=== PATIENT | female | born 1975 | race Caucasian/White ===

== ENCOUNTER → 2017-03-04 | Outpatient (CLI) | payer BC ==
--- NOTE | 2017-03-04 14:32 | Diagnostic Imaging Report ---
PROCEDURE: US Thyroid. TECHNIQUE: Multiple real-time grayscale images were obtained of the thyroid in various projections. INDICATION: Dysphagia. COMPARISON: None. DISCUSSION: The thyroid gland is normal in echotexture and size. No discrete nodules identified. No abnormal adjacent lymph nodes identified. Normal color Doppler blood flow. The right thyroid measures 4.4 x 0.9 x 1.0 cm. Left thyroid measures 3.8 x 1.0 x 1.1 cm. IMPRESSION: 1. Normal sonographic appearance of the thyroid gland. Dictated by: Dictated on workstation # [id number]
== END ==
LOC: RAD 12:46
PROVIDERS: ATTEND Nurse Practitioner Family
DX: R13.10 Dysphagia, unspecified (principal)
CPT/HCPCS: 76536

== ENCOUNTER → 2018-11-03 | Outpatient (CLI) | payer BC ==
--- NOTE | 2018-11-03 21:12 | Diagnostic Imaging Report ---
INDICATION: Routine screening. COMPARISON: Prior mammogram from 11/05/2015 and 10/31/2013. EXAMINATION: 2D and 3D bilateral screening mammography was performed with CAD. The current study was also evaluated with a Computer Aided Detection (CAD) system. FINDINGS: Both breasts remain heterogeneously dense, limiting the sensitivity of mammography. Intraparenchymal lymph nodes in both breasts appear to be stable. No dominant mass or malignant appearing microcalcifications are seen. The axillae are unremarkable. IMPRESSION: No mammographic features suspicious for malignancy are identified. ACR BI-RADS Category 2: Benign findings. Result letter will be mailed to the patient. Note: At least 10% of breast cancer is not imaged by mammography. Dictated by: Dictated on workstation # [id number]
== END ==
LOC: RAD 10:18
PROVIDERS: ATTEND Nurse Practitioner Family
DX: Z12.31 Encounter for screening mammogram for malignant neoplasm of breast (principal)
CPT/HCPCS: 77067

== ENCOUNTER → 2020-12-31 | Outpatient (CLI) | payer BC ==
--- NOTE | 2020-12-31 20:02 | Diagnostic Imaging Report ---
INDICATION: Routine screening. COMPARISON is made with prior mammograms 11/03/2018 and 11/05/2015. 2-D and 3-D bilateral screening mammography was performed with CAD. Both breasts are heterogeneously dense, limiting the sensitivity of mammography. Intraparenchymal lymph nodes in the outer aspects of both breasts appears stable. No spiculated mass or malignant appearing microcalcifications are seen. Axillae are unremarkable. IMPRESSION: BI-RADS Category 2. No mammographic features suspicious for malignancy are identified. ACR BI-RADS Category 2: Benign findings. Result letter will be mailed to the patient. Note: At least 10% of breast cancer is not imaged by mammography. Dictated by: Dictated on workstation # [id number]
== END ==
LOC: RAD 15:00
PROVIDERS: ATTEND Family Medicine
DX: Z12.31 Encounter for screening mammogram for malignant neoplasm of breast (principal)
CPT/HCPCS: 77063; 77067

== ENCOUNTER 2021-04-11 13:30 | Outpatient (RCR) | payer BC | END 2021-07-10 | disposition home or self-care (01) | LOC: CARD 13:30 | PROVIDERS: ATTEND Nurse Practitioner Family | DX: R00.0 Tachycardia, unspecified (principal) ==

== ENCOUNTER 2022-02-26 23:13 | Emergency (ER) | payer BC ==
[~2022-02-26] VITALS: Ht 165 cm; Wt 89.0 kg
[2022-02-26] MEDS ORDERED: MTP25TSR (23:29)
[2022-02-26] MEDS ORDERED: CIPR2.5D3 (23:29)
[2022-02-26] MEDS ORDERED: LEVO-129 (23:29)
--- NOTE | 2022-02-27 00:01 | ED General ---
General Chief Complaint: Cardiac/General Problems Stated Complaint: HIGH BLOOD PRESSURE Nursing Triage Note: c/o "head parisi" feeling tonight. reports taking extra dose metoprolol. denies other complaints. Source of Information: Patient History of Present Illness Date Seen by Provider: Feb 26, 2022 Time Seen by Provider: 23:34 Initial Comments PT ARRIVES VIA POV FROM HOME STATES AROUND 2130 TONIGHT, SHE HAD A BRIEF "HEAD PARISI" --THOUGHT HER BLOOD PRESSURE MIGHT BE HIGH, SO SHE TOOK AN EXTRA DOSE OF BLOOD PRESSURE MEDICATION--SHE DID NOT CHECK HER BLOOD PRESSURE OR PULSE TONIGHT STATES SHE FEELS FINE NOW STATES FOR THE LAST COUPLE OF WEEKS, SHE HAS BEEN HAVING "HEAD RUSHES" ( VERY BRIEF EPISODES THAT LAST A COUPLE OF SECONDS) OFF AND ON FOR THE LAST COUPLE OF WEEKS--THOUGHT IT MIGHT BE RELATED TO HER BLOOD PRESSURE BEING HIGH, BUT SHE HAS NOT CHECKED HER BLOOD PRESSURE OR PULSE AT ANY TIME. HAS NOT ATTEMPTED TO CONTACT HER PCP AT ANY TIME. PT HAS BEEN PRESCRIBED METOPROLOL 25 MG ER TABLET--1/2 PILL DAILY. PT SELF-INCREASED THIS DOSE TO A FULL PILL ABOUT 2 WEEKS AGO, WHEN SHE STARTED HAVING THESE "HEAD RUSHES" SHE TOOK A FULL PILL AT 1800 TONIGHT, AND THEN TOOK ANOTHER FULL PILL AT 2130 TONIGHT WHEN SHE HAD THE "HEAD PARISI" NO HEADACHE AT ANY TIME NO DIZZINESS NO VISION CHANGES NO SYNCOPE NO NAUSEA/VOMITING NO PARESTHESIAS OR MOTOR DEFICITS NO CHEST PAIN NO PALPITATIONS NO SHORTNESS OF BREATH PT MOWED THE YARD WITH A PUSH MOWER TONIGHT, BUT FELT FINE WHEN SHE WAS DOING THIS, AND DRANK ALOT OF GATORADE WHILE SHE WAS MOWING STATES SHE HAS NOT BEEN OUT IN THE HEAT OR MOWED THE YARD FOR AT LEAST A MONTH--WAS HAVING THESE "HEAD RUSHES" FOR THE LAST COUPLE OF WEEKS WHEN SHE HAD BEEN INDOORS ALL DAY LONG TONIGHT'S EPISODE WAS NO DIFFERENT IN ANY WAY WHATSOEVER HAS NOT SOUGHT CARE UNTIL TONIGHT STATES SHE JUST STARTED GETTING MORE NERVOUS ABOUT IT. PCP: DR. STREET Allergies and Home Medications Allergies Coded Allergies: bee venom protein (honey bee) (Verified Allergy, Unknown, 02/26/22) Patient Home Medication List Home Medication List Reviewed: Yes Ciprofloxacin HCl (Ciprofloxacin HCl) 0.3 % Drops, (Reported) Entered as Reported by: SHREYA PRESTON on 02/26/222328 Last Action: New Order Levothyroxine Sodium (Euthyrox) 50 Mcg Tablet, (Reported) Entered as Reported by: SHREYA PRESTON on 02/26/222328 Last Action: New Order Metoprolol Succinate (Metoprolol Succinate) 25 Mg Tab.er.24h, (Reported) Entered as Reported by: SHREYA PRESTON on 02/26/222328 Last Action: New Order Review of Systems Review of Systems Constitutional: see HPI EENTM: no symptoms reported Respiratory: no symptoms reported Cardiovascular: no symptoms reported Gastrointestinal: no symptoms reported Genitourinary: no symptoms reported Musculoskeletal: no symptoms reported Skin: no symptoms reported Psychiatric/Neurological: See HPI Hematologic/Lymphatic: No Symptoms Reported Immunological/Allergic: no symptoms reported Past Oxpwyzw-Lfnngy-Ljikmr Hx Patient Social History Tobacco Use?: No Substance use?: No Alcohol Use?: No Pt feels they are or have been: No Past Medical History Surgery/Hospitalization HX: htn, hypothryoidism Surgeries: No Respiratory: No Cardiac: Yes Hypertension Neurological: No Reproductive Disorders: No Genitourinary: No Gastrointestinal: No Musculoskeletal: No Endocrine: Yes Hypothyroidsim HEENT: No Cancer: No Psychosocial: No Integumentary: No Blood Disorders: No Physical Exam Vital Signs Vital Signs - First Documented 02/26/22 23:22 Temp 36.5 Pulse 92 Resp 16 B/P (MAP) 156/96 (116) Pulse Ox 98 O2 Delivery Room Air Capillary Refill : Less Than 3 Seconds Height, Weight, BMI Height: '" Weight: lbs. oz. kg; 32.00 BMI Method: General Appearance: No Apparent Distress, WD/WN, Anxious HEENT: PERRL/EOMI Neck: Normal Inspection Respiratory: Normal Breath Sounds, No Accessory Muscle Use, No Respiratory Distress Cardiovascular: Regular Rate, Rhythm, No Edema, No Gallop, No JVD, No Murmur, Normal Peripheral Pulses Gastrointestinal: Non Tender, Soft Back: No CVA Tenderness Extremity: Normal Inspection Neurologic/Psychiatric: Alert, Oriented x3, No Motor/Sensory Deficits, supply and distribution manager II- XII Norm as Tested; No Abnormal Cerebellar Tests; Other (MILDLY ANXIOUS) Skin: Normal Color, Warm/Dry Progress/Results/Core Measures Suspected Sepsis SIRS Temperature: Pulse: 92 Respiratory Rate: 16 Blood Pressure 156 /96 Mean: 116 Results/Orders Vital Signs/I&O 02/26/22 02/27/22 23:22 00:03 Temp 36.5 Pulse 92 83 Resp 16 16 B/P (MAP) 156/96 (116) 122/67 Pulse Ox 98 97 O2 Delivery Room Air Room Air Capillary Refill : Less Than 3 Seconds Blood Pressure Mean: 116 Progress Note : Progress Note PT COMPLETELY ASYMPTOMATIC DURING ER STAY BP 120'S/70'S, HR IN 80'S-90'S, NSR ON TELEMETRY. O2 SAT 99% ON ROOM AIR PT FEELS COMFORTABLE GOING HOME AT THIS TIME PT HAS ROUTINE EXAM SCHEDULED NEXT WEEK 03/05/[address]. SHE WILL DISCUSS THESE SYMPTOMS WITH HER AT THAT TIME. Departure Impression Primary Impression: General medical exam Additional Impression: HX OF HTN Disposition: 01 HOME, SELF-CARE Condition: Stable Departure-Patient Inst. Decision time for Depature: 00:00 Referrals: SMITA STREET MD (PCP/Family) Primary Care Physician Patient Instructions: High Blood Pressure ED Add. Discharge Instructions: TAKE YOUR MEDICATION PRESCRIBED FOLLOW UP WITH DR. STREET NEXT WEEK SCHEDULED RETURN TO ER IF SYMPTOMS WORSEN All discharge instructions reviewed with patient and/or family. Voiced understanding. PADMINI NASSAR DO Feb 27, 2022 00:01
[2022-02-27 00:03] VITALS: BP 122/67
== END 2022-02-27 00:05 | disposition home or self-care (01) ==
LOC: EDUNIT# 23:13 → ER 23:17
DX: Z00.00 Encounter for general adult medical examination without abnormal findings (principal); I10 Essential (primary) hypertension; Z79.899 Other long term (current) drug therapy
CPT/HCPCS: 99281

== ENCOUNTER 2022-03-25 05:47 | Outpatient (CLI) | payer BC ==
[~2022-03-25] VITALS: Ht 165.1 cm; Wt 88.0 kg
[~2022-03-25 05:47] MED LIST: CIPR2.5D3; LEVO-129 PO; MTP25TSR PO
== END 2022-03-26 09:48 ==
LOC: PREOP 05:47
PROVIDERS: ATTEND Internal Medicine
DX: Z01.818 Encounter for other preprocedural examination (principal); Z12.11 Encounter for screening for malignant neoplasm of colon

== ENCOUNTER 2022-03-27 10:22 | Day surgery (SDC) | payer BC ==
--- NOTE | 2022-03-25 08:46 | HISTORY AND PHYSICAL ---
DATE OF SERVICE: COLONOSCOPY HISTORY AND PHYSICAL DATE OF ADMISSION: . HISTORY OF PRESENT ILLNESS: The patient is a 46-year-old white female referred by Dr. Chang for her first screening colonoscopy. She is deemed to be of average risk as she is not aware of any family history for colon cancer. She denies bowel habit change, abdominal pain, change in weight, constipation or diarrhea. PAST MEDICAL HISTORY: Significant for hypertension and Raul's thyroiditis, on thyroid replacement. She takes 50 mg of euthyroid and metoprolol succinate 25 mg b.i.d. PAST SURGICAL HISTORY: She reports no past surgical history. FAMILY HISTORY: Father living in his 70s. Reported history of skin cancer. Mother, I believe, still living in her 70s with a history of CT and breast cancer. SOCIAL HISTORY: She is single, employed, working in a [employer] with no past smoking or drinking history. REVIEW OF SYSTEMS: CONSTITUTIONAL: Denies night sweats, chills, fever or change in weight. PULMONARY: Denies cough, wheezing or shortness of breath. CARDIOVASCULAR: Denies chest discomfort, orthopnea, PND or pedal edema. GASTROINTESTINAL: As noted in the HPI. PHYSICAL EXAMINATION: GENERAL: Reveals a white female, appears to be in no acute distress. VITAL SIGNS: Blood pressure 120/82 and weight is 194 pounds. CHEST: Clear to auscultation. CARDIOVASCULAR: Reveals a regular rate and rhythm without murmur, S3 or S4. ABDOMEN: Soft, supple without mass, organomegaly or tenderness. EXTREMITIES: Reveal no cyanosis, clubbing or edema. ASSESSMENT AND PLAN: The patient is being set up for screening colonoscopy. Electronic medical record reviewed and Dr. Chang's notations reviewed. Questions answered after giving prep instructions. I thank you for the referral of this pleasant lady. Job ID: [id number] DocumentID: [id number] Dictated Date: 03/23/2022 17:05:38 Placer Miner Date: 03/23/2022 17:22:55 Dictated By: YUDELKA BOLDEN MD
[~2022-03-27] VITALS: Ht 165.1 cm; Wt 88.0 kg
[2022-03-27] MEDS ORDERED: LACTATED RINGERS 1,000 ML IV STA (10:24)
[2022-03-27] MEDS ORDERED: LACTATED RINGERS 1,000 ML IV ONE (10:27)
--- NOTE | 2022-03-27 10:41 | Pre-Op Note & Conscious Sedat ---
Pre-Operative Progress Note Date H&P Reviewed: Mar 27, 2022 Time H&P Reviewed: 10:41 Pre-Op Diagnosis: screening colon Conscious Sedation Pre-Proced ASA Score 2 For ASA 3 and 4: Consider anesthesia and medical clearance. Also, for patients with a history of failed moderate sedation consider anesthesia. Airway Lungs Heart ASA score ASA 1: a normal healthy patient ASA 2: a patient with a mild systemic disease (mid diabetes, controlled hypertension, obesity ASA 3: a patient with a severe systemic disease that limits activity (angina, COPD, prior Myocardial infarction) ASA 4: a patient with an incapacitating disease that is a constant threat to life (CHF, renal failure) ASA 5: a moribund patient not expected to survive 24 hrs. (ruptured aneurysm) ASA 6: a declared brain- patient whose organs are being harvested. For emergent operations, add the letter E after the classification Mallampati Classification Grade 2 Sedation Plan Analgesia, Amnesia, Plan communicated to team members, Discussed options with patient/fam, Discussed risks with patient/fam The patient is an appropriate candidate to undergo the planned procedure, sedation, and anesthesia. The patient immediately re-assessed prior to indication. YUDELKA BOLDEN MD Mar 27, 2022 10:41
[2022-03-27 10:55] VITALS: BP 144/78
[2022-03-27] MEDS ORDERED: MIDAZOLAM 2 MG/2 ML (VERSED) VIAL ONE (11:20)
[2022-03-27] MEDS ORDERED: PROPOFOL INJECTION 50 ML IV ONE (11:20)
[2022-03-27 11:50] VITALS: BP 107/58
--- NOTE | 2022-03-27 11:50 | Progress Note-Post Operative ---
Post-Procedure Note Physician (s)/Dispute Specialist (s) Physician YUDELKA BOLDEN MD Pre-Procedure Diagnosis Pre-Procedure Diagnosis: screening colon Post-Procedure Diagnosis Post-operative diagnosis: normal colonoscopy YUDELKA BOLDEN MD Mar 27, 2022 11:50
[2022-03-27 11:55] VITALS: BP 110/64
[2022-03-27 12:25] VITALS: BP 110/64
--- NOTE | 2022-03-27 12:32 | Anesthesia-General Post-Op ---
MAC Patient Condition Mental Status/LOC: Same as Preop Cardiovascular: Satisfactory Nausea/Vomiting: Absent Respiratory: Satisfactory Pain: Controlled Complications: Absent Post Op Complications Complications None Follow Up Care/Instructions Patient Instructions None needed. Anesthesiology Discharge Order Discharge Order Patient is doing well, no complaints, stable vital signs, no apparent adverse anesthesia problems. No complications reported per nursing. BECK LEWIS CRNA Mar 27, 2022 12:32
--- NOTE | 2022-03-27 13:57 | OPERATIVE REPORT ---
DATE OF SERVICE: COLONOSCOPY SUMMARY INDICATION FOR THE PROCEDURE: Screening colonoscopy. DESCRIPTION OF PROCEDURE: The patient was placed in the left lateral decubitus position. Prior to undergoing colonoscopy, digital rectal evaluation was performed. Anal sphincter tone was normal and the perianal reflexes intact. Digital rectal evaluation was compatible with an anterior rectocele. No other abnormalities were noted on digital inspection of anal canal or distal rectal vault. The colonoscope was then inserted into the rectum and under direct visualization advanced to the cecum. Cecum was identified by identification of the appendiceal orifice and ileocecal valve. Careful inspection was made as colonoscope withdrawn. Quality of prep was good. FINDINGS: There was no evidence for internal or external hemorrhoids. The rectum, sigmoid colon, descending colon, splenic flexure, transverse colon, hepatic flexure, ascending colon, and cecum were unremarkable. No evidence for neoplasia or diverticular disease. ASSESSMENT: Normal colonoscopy to the cecum, although digital rectal evaluation suggests an anterior rectocele. As the patient is not aware of any family history for colon cancer, we would advocate consideration for repeat screening colonoscopy in 10 years. I thank you for the referral of this pleasant lady. Job ID: [id number] DocumentID: [id number] Dictated Date: 03/27/2022 11:53:21 Plant And Machinery Valuer Date: 03/27/2022 13:56:15 Dictated By: YUDELKA BOLDEN MD
== END 2022-03-27 12:25 | disposition home or self-care (01) ==
LOC: ENDO 10:22
PROVIDERS: ATTEND Internal Medicine
DX: Z12.11 Encounter for screening for malignant neoplasm of colon (principal); E06.3 Autoimmune thyroiditis; I10 Essential (primary) hypertension; Z79.890 Hormone replacement therapy; Z79.899 Other long term (current) drug therapy
CPT/HCPCS: 84703

== ENCOUNTER → 2022-05-19 | Outpatient (CLI) | payer BC ==
--- NOTE | 2022-05-19 18:33 | Diagnostic Imaging Report ---
Indication: Routine screening. Comparison is made with prior mammograms from 12/31/2020 and 11/03/2018. 2-D and 3-D bilateral screening mammography was performed with CAD. Both breasts are heterogeneously dense, limiting the sensitivity of mammography. Intraparenchymal lymph nodes in the outer aspects of both breasts appear stable. No spiculated mass or malignant-appearing microcalcifications are seen. Axillae are unremarkable. IMPRESSION: BI-RADS Category 2 No mammographic features suspicious for malignancy are identified. ACR BI-RADS Category 2: Benign findings. Result letter will be mailed to the patient. Note: At least 10% of breast cancer is not imaged by mammography. Dictated by: Dictated on workstation # [id number]
== END ==
LOC: RAD 15:02
PROVIDERS: ATTEND Nurse Practitioner Family
DX: Z12.31 Encounter for screening mammogram for malignant neoplasm of breast (principal)
CPT/HCPCS: 77063; 77067

== ENCOUNTER → 2023-05-21 | Outpatient (CLI) | payer BC ==
[~2023-05-21] MED LIST changes: +CIPR2.5D18; -CIPR2.5D3
--- NOTE | 2023-05-21 16:24 | Diagnostic Imaging Report ---
INDICATION: Routine screening. COMPARISON: 05/19/2022 and 12/31/2020. TECHNIQUE: 2D and 3D bilateral screening mammography was performed with CAD. FINDINGS: Both breasts are heterogeneously dense, limiting the sensitivity of mammography. Benign-appearing nodules in both breasts appear stable. No spiculated mass or malignant-appearing microcalcifications are identified. The axillae are unremarkable. IMPRESSION: No mammographic features suspicious for malignancy are identified. ACR BI-RADS Category 2: Benign findings. Result letter will be mailed to the patient. Note: At least 10% of breast cancer is not imaged by mammography. Dictated by: Dictated on workstation # [id number]
== END ==
LOC: RAD 15:04
PROVIDERS: ATTEND Physician Assistant
DX: Z12.31 Encounter for screening mammogram for malignant neoplasm of breast (principal)
CPT/HCPCS: 77063; 77067

== ENCOUNTER → 2023-07-09 | Outpatient (CLI) | payer BC ==
--- NOTE | 2023-07-09 15:13 | Diagnostic Imaging Report ---
PROCEDURE: Pelvic comp/transvaginal sonogram. TECHNIQUE: Complete transabdominal and transvaginal pelvic ultrasound was performed. In addition, limited pelvic Doppler was performed. INDICATION: Abnormal bleeding for one month. FINDINGS: Uterus is anteverted measuring 10.0 x 4.6 x 6.4 cm. There appear to be two separate endometrial canals suggestive of a septate uterus. Endometrium is approximately 13 mm in thickness. Myometrium is heterogeneous, but no discrete myometrial mass. The left ovary could not be visualized due to bowel gas. No definite normal-appearing ovarian tissue on the right side is identified. There is a large cystic structure in the right adnexa measuring 3.9 x 2.7 x 3.2 cm. No abnormal vascularity is seen. There is no free pelvic fluid. IMPRESSION: 1. Findings suggestive of a septate uterus. 2. No definite visualized ovarian tissue is identified, perhaps owing to overlying bowel gas. There is a 3.9 cm right adnexal cyst which may be ovarian. Dictated by: Dictated on workstation # [id number]
== END ==
LOC: RAD 10:47
PROVIDERS: ATTEND Nurse Practitioner Family
DX: N93.9 Abnormal uterine and vaginal bleeding, unspecified (principal); N92.6 Irregular menstruation, unspecified; N95.1 Menopausal and female climacteric states
CPT/HCPCS: 76830; 76856